=== PATIENT | male | born 1965 | race Two or more races ===

== ENCOUNTER 2024-10-22 10:56 | Emergency (ER) | payer OTHER ==
[~2024-10-22] VITALS: Ht 165.1 cm; Wt 79.4 kg
[2024-10-22] MEDS ORDERED: 0.9 % SODIUM CHLORIDE 1,000 ML IV SCH ×2 (11:45→12:00)
[2024-10-22 13:00] LABS: HEMATOCRIT 36.6 % (39.0-48.0); HEMOGLOBIN 12.4 g/dL (13-16.00); MEAN CELL VOLUME 86.8 fL (80.0-100.00); MEAN CORPUSCULAR HEMOGLOBIN 29.4 pg (27.00-32.0); MEAN CORPUSCULAR HGB CONC 33.9 g/dl (32.0-36.0); PLATELET COUNT 160 K/uL (150-450); RED BLOOD COUNT 4.22 M/uL (4.00-6.00); RED CELL DISTRIBUTION WIDTH 14.9 % (11.5-14.5)
[2024-10-22 13:11] LABS: ALBUMIN 2.2 gm/dL (3.4-5.0); BILIRUBIN TOTAL 0.88 mg/dL (0.3-1.2); CALCIUM 7.8 mg/dL (8.5-10.1); CREATININE SERUM 1.15 mg/dL (0.70-1.30); GFR 65.09; GLOBULINA 4.3 G/DL (2.4-3.5); POTASSIUM 4.2 mEq/L (3.5-5.1); TOTAL PROTEIN 6.5 gm/dL (6.4-8.2)
[2024-10-22] MEDS ORDERED: ADULT LOW DOSE81 M1 PO (13:36)
[2024-10-22] MEDS ORDERED: ROSUVASTATIN CA20 MG PO (13:36)
[2024-10-22] MEDS ORDERED: HYDROCHLOROTH12.5 M2 PO (13:37)
[2024-10-22] MEDS ORDERED: ZESTRIL20 MG PO (13:37)
[2024-10-22] MEDS ORDERED: CARVEDILOL ER40 MG PO (13:37)
[2024-10-22 13:40] LABS: PH,URINE 5.5 (5.0-8.0); URINE APPEARANCE Clear; URINE BILIRRUBIN Negative (NEGATIVE); URINE BLOOD Negative; URINE COLOR Dark Yellow; URINE GLUCOSE Negative (NEGATIVE); URINE KETONE Negative (NEGATIVE); URINE LEUKOCYTE Negative; URINE NITRATE Negative
[2024-10-22 13:41] LABS: URINE BACTERIA 6.1 uL (0.0-1933); URINE EPITHELIAL CELLS 26.9 uL (0.0-38.8); URINE RBC 22.3 uL (0.0-20.8); URINE WBC 6.4 uL (0.0-23.2)
[2024-10-22 13:55] LABS: URINE CAST 0.88 uL (0.0-1.40); URINE PROTEIN 100 (NEGATIVE)
[2024-10-22] MEDS ORDERED: 0.9 % SODIUM CHLORIDE 1,000 ML IV STA ×2 (19:50→20:52)
[2024-10-22] MEDS ORDERED: CIPROFLOXACIN IN 5 % DEXTROSE 400 MG/200 ML PIGGYBAG IV ONE ×2 (21:00→22:26)
== END 2024-10-23 00:13 | disposition home or self-care (01) ==
LOC: ER 10:56
PROVIDERS: Emergency Medicine
DX: N39.0 Urinary tract infection, site not specified (principal); R11.10 Vomiting, unspecified; Z20.822 Contact with and (suspected) exposure to COVID-19; I10 Essential (primary) hypertension
CPT/HCPCS: 36415; 70450; 74177; 96365; 96366; 99284; J0744; J7030 ×3; Q9965